=== PATIENT | female | born 1985 | race African-American/Black ===

== ENCOUNTER 2021-08-03 16:27 | Emergency (ER) | payer OTHER ==
[~2021-08-03] VITALS: Ht 154.9 cm; Wt 105.7 kg
[2021-08-03 16:32] VITALS: BP 128/68
--- NOTE | 2021-08-03 16:50 | NUR ---
Pt presents to ED c/o abdominal pain x1 month. Pt reports pain level 10/10, sharp to RLQ. Pt reports mild nausea and x1 episode of diarrhea yesterday. Last BM 08/02/21. Pt a&o x4. GCS 15. Allergies: Morphine Med hx: Depression, Anxiety, Arrythmia
--- NOTE | 2021-08-03 16:52 | NUR ---
Pt had colonoscopy procedure done today
--- NOTE | 2021-08-03 16:56 | NUR ---
Phleb at bedside
[2021-08-03 17:00] LABS: BASOPHILS # (AUTO) 0.1 K/uL (0.00-0.22); BASOPHILS % (AUTO) 0.5 % (0.0-2.0); EOSINOPHILS # (AUTO) 0.2 K/uL (0-0.4); EOSINOPHILS % (AUTO) 1.4 % (0.0-4.0); HEMATOCRIT 33.5 % (36-48); HEMOGLOBIN 11.2 g/dL (12.0-16.0); LYMPHOCYTES # (AUTO) 3.7 K/uL (2.5-16.5); LYMPHOCYTES % (AUTO) 21.4 % (20.5-51.1); MEAN CORPUSCULAR HEMOGLOBIN 23 pg (27-31); MEAN CORPUSCULAR HGB CONC 33 g/dL (33-37); MEAN CORPUSCULAR VOLUME 69.9 fL (80-94); MONOCYTES # (AUTO) 1.2 K/uL (0.8-1.0); MONOCYTES % (AUTO) 6.8 % (1.7-9.3); NEUTROPHILS # (AUTO) 12.1 K/uL (1.8-7.7); NEUTROPHILS % (AUTO) 69.9 % (42.2-75.2); PLATELET COUNT (AUTO) 430 K/uL (140-450); RED BLOOD CELL COUNT(AUTO) 4.78 MIL/uL (4.20-5.40); RED CELL DISTRIBUTION WIDTH 19.8 % (11.6-13.7); WHITE BLOOD COUNT (AUTO) 17.4 K/uL (4.8-10.8)
[2021-08-03 17:04] LABS: APPEARANCE,URINE CLEAR (CLEAR); BILIRUBIN,URINE NEGATIVE (NEGATIVE); BLOOD, URINE NEGATIVE (NEGATIVE); COLOR,URINE YELLOW (YELLOW); LEUKOCYTE ESTERASE ,URINE NEGATIVE (NEGATIVE); NITRITE, URINE NEGATIVE (NEGATIVE); UGLUCOSE NEGATIVE (NEGATIVE)
[2021-08-03 17:16] LABS: ANION GAP 14.7 (8-16); CREATININE 0.8 mg/dL (0.6-1.3); POTASSIUM 3.7 mmol/L (3.5-5.1); TOTAL BILIRUBIN 0.4 mg/dL (0.0-1.0)
--- NOTE | 2021-08-03 17:20 | NUR ---
MD Land evaluating pt at bedside
[2021-08-03] MEDS ORDERED: NACL 0.9% 1,000 ML IV SCH (17:25)
[2021-08-03] MEDS ORDERED: fentaNYL citrate 0.05 MG/ML VIAL IVP ONE (17:25)
[2021-08-03] MEDS ORDERED: ONDANSETRON 4 MG/2 ML VIAL IVP ONE (17:25)
--- NOTE | 2021-08-03 17:46 | NUR ---
Pt updated on plan of care
--- NOTE | 2021-08-03 18:18 | NUR ---
Pt to CT via chris
--- NOTE | 2021-08-03 18:36 | NUR ---
Pt back from CT
--- NOTE | 2021-08-03 19:15 | NUR ---
Transfer of care and report given JANAE Espinosa
--- NOTE | 2021-08-03 19:16 | NUR ---
REPORT RECIEVED FROM JANAE CERRATO FOR TRANSFER OF CARE AT THIS TIME.
--- NOTE | 2021-08-03 19:20 | NUR ---
PT RESTING IN BED. IV TO R AC REMAINS PATENT. REPORTING PAIN /10 TO LOWER ABDOMEN. ERMD MADE AWARE. AWAITING NEW ORDERS.
[2021-08-03] MEDS ORDERED: KETOROLAC 30 MG/ML VIAL IVP ONE (19:25)
--- NOTE | 2021-08-03 19:31 | NUR ---
PT AMBULATED TO RESTROOM WITH STEADY AND EVEN GAIT.
--- NOTE | 2021-08-03 20:09 | NUR ---
ERMD AT BEDSIDE.
[2021-08-03] MEDS ORDERED: IBUP-2213 PO (20:22)
[2021-08-03] MEDS ORDERED: ACET-8386 PO (20:22)
[2021-08-03 20:41] VITALS: BP 97/52
--- NOTE | 2021-08-03 20:41 | NUR ---
Patient discharged with v/s stable. Written and verbal after care instructions given and explained. Patient alert, oriented and verbalized understanding of instructions. Ambulatory with steady gait. All questions addressed prior to discharge. ID band removed. Patient advised to follow up with PMD. Rx of NORCO AND MOTRIN given. Patient educated on indication of medication including possible reaction and side effects. Opportunity to ask questions provided and answered.
== END 2021-08-03 20:41 | disposition home or self-care (01) ==
LOC: MED 16:27
DX: R10.31 Right lower quadrant pain (principal); Z88.5 Allergy status to narcotic agent; Z88.2 Allergy status to sulfonamides
CPT/HCPCS: 36415; 74177; 80053; 81003; 81025; 83690; 85025; 96361; 96374; 96375; 99285; J1885; J2405; J3010; J7030; Q9967

== ENCOUNTER 2022-07-23 13:48 | Emergency (ER) | payer OTHER ==
[~2022-07-23] VITALS: Ht 154.9 cm; Wt 113.4 kg
[~2022-07-23 13:48] MED LIST: ACET-8386 PO; IBUP-2213 PO
[2022-07-23 13:55] VITALS: BP 117/67
[2022-07-23] MEDS ORDERED: KETOROLAC 30 MG/ML VIAL IM ONE (14:20)
[2022-07-23] MEDS ORDERED: HYDROcodone/APAP 5/325 MG 1 TAB TAB PO ONE (14:20)
== END 2022-07-23 15:10 | disposition left against medical advice (07) ==
LOC: MED 13:48
DX: R10.31 Right lower quadrant pain (principal); E66.9 Obesity, unspecified; Z90.710 Acquired absence of both cervix and uterus; Z79.1 Long term (current) use of non-steroidal anti-inflammatories (NSAID); Z79.891 Long term (current) use of opiate analgesic; Z88.2 Allergy status to sulfonamides; Z88.5 Allergy status to narcotic agent
CPT/HCPCS: 99281

== ENCOUNTER 2022-12-11 14:26 | Emergency (ER) | payer OTHER ==
[~2022-12-11] VITALS: Ht 154.9 cm; Wt 109.8 kg
[~2022-12-11 14:26] MED LIST changes: -ACET-8386 PO; +ACET-8905 PO
[2022-12-11 14:38] VITALS: BP 151/81
--- NOTE | 2022-12-11 15:01 | NUR ---
URINE HANDED TO [employer] TECH
[2022-12-11 15:15] LABS: APPEARANCE,URINE CLEAR (CLEAR); BILIRUBIN,URINE NEGATIVE (NEGATIVE); BLOOD, URINE NEGATIVE (NEGATIVE); COLOR,URINE YELLOW (YELLOW); LEUKOCYTE ESTERASE ,URINE TRACE (NEGATIVE); NITRITE, URINE NEGATIVE (NEGATIVE); PH,URINE 5.5 (5.0-9.0); UGLUCOSE NEGATIVE (NEGATIVE)
[2022-12-11 15:29] LABS: BASOPHILS # (AUTO) 0.1 K/uL (0.00-0.22); BASOPHILS % (AUTO) 0.5 % (0.0-2.0); EOSINOPHILS # (AUTO) 0.3 K/uL (0-0.4); EOSINOPHILS % (AUTO) 2.2 % (0.0-4.0); HEMATOCRIT 33.9 % (36-48); HEMOGLOBIN 11.4 g/dL (12.0-16.0); LYMPHOCYTES # (AUTO) 3.3 K/uL (2.5-16.5); LYMPHOCYTES % (AUTO) 24.5 % (20.5-51.1); MEAN CORPUSCULAR HEMOGLOBIN 24 pg (27-31); MEAN CORPUSCULAR HGB CONC 34 g/dL (33-37); MEAN CORPUSCULAR VOLUME 69.8 fL (80-94); MONOCYTES # (AUTO) 0.8 K/uL (0.8-1.0); MONOCYTES % (AUTO) 5.7 % (1.7-9.3); NEUTROPHILS % (AUTO) 67.1 % (42.2-75.2); PLATELET COUNT (AUTO) 413 K/uL (140-450); RED BLOOD CELL COUNT(AUTO) 4.86 MIL/uL (4.20-5.40); RED CELL DISTRIBUTION WIDTH 19.8 % (11.6-13.7); WHITE BLOOD COUNT (AUTO) 13.3 K/uL (4.8-10.8)
[2022-12-11 15:43] LABS: RBC,URINE NONE SEEN /HPF (0-5); WBC,URINE 0-5 /HPF (0-5)
[2022-12-11 15:54] LABS: ALBUMIN 3.5 g/dL (3.4-5.0); CARBON DIOXIDE 27.6 mmol/L (21-32); CREATININE 0.8 mg/dL (0.6-1.3); POTASSIUM 3.6 mmol/L (3.5-5.1); TOTAL BILIRUBIN 0.5 mg/dL (0.0-1.0)
[2022-12-11] MEDS ORDERED: KETOROLAC 60 MG/2 ML VIAL IM ONE (17:40)
--- NOTE | 2022-12-11 18:00 | NUR ---
PT SIGNED TRANSFE CONSENT FOR CT AT [facility]. PT TAKEN FOR CT AT [facility]
--- NOTE | 2022-12-11 19:22 | NUR ---
pt returned from [facility]
--- NOTE | 2022-12-11 19:36 | NUR ---
PT PRESENTED BACK FROM [place] ON ROOM AIR, AOX4, ENDORSES 10/10 PAIN IN ABDOMINAL REGION THAT WORSENS WITH AMBULATION. PT DISPLAYS CALM AFFECT
[2022-12-11] MEDS ORDERED: MAGN296S48 PO (19:40)
--- NOTE | 2022-12-11 19:46 | NUR ---
Patient discharged with v/s stable. Written and verbal after care instructions given and explained. Patient alert, oriented and verbalized understanding of instructions. with steady gait. All questions addressed prior to discharge. ID band removed. Patient advised to follow up with PMD. Rx of MAGNESIUM CITRATE given. Patient educated on indication of medication including possible reaction and side effects. Opportunity to ask questions provided and answered.
[2022-12-11 19:47] VITALS: BP 151/81
== END 2022-12-11 19:47 | disposition home or self-care (01) ==
LOC: MED 14:26
DX: K59.00 Constipation, unspecified (principal); R10.31 Right lower quadrant pain; Z88.2 Allergy status to sulfonamides; Z88.5 Allergy status to narcotic agent; Z90.710 Acquired absence of both cervix and uterus; Z98.890 Other specified postprocedural states
CPT/HCPCS: 36415; 74022; 80053; 81001; 81025; 83690; 85025; 87086; 96372; 99284; J1885